=== PATIENT | male | born 1960 | race African-American/Black ===

== ENCOUNTER 2025-06-26 17:17 | Emergency (ER) | payer MEDICAID, SELFPAY ==
--- OUTSIDE RECORDS SUMMARY | 2025-05-21 15:30 | XMS_ITS ---
Author Organization [facility] - Primary Address [address] [place] [id number] Care Team Providers Care Teacher'S Aide Name Role Phone xx, xx Primary Care Provider Unavailabl e Migration, Provider Unavailable Unavailable REASON FOR VISIT Multum To Medispan Conversion Encounter Medications Medication SIG (Take, Route, Frequency, Duration) Notes Start Date End Date Status TYLENOL 325 MG ORAL TABLET *Please review for potential replacement for e-prescription and drug interaction check* Active ADVIL 200 MG ORAL TABLET *Please review for potential replacement for e-prescription and drug interaction check* Active Encounters Encounter Location Date Provider Diagnosis [facility] - Primary [address] [place] [phone] 05/21/2025 Provider Migration Plan Of Treatment No Information Progress Notes * HIRAM SHARMAIZ ADOB:[birth year] (64 yo M)Acc No.[id number]:05/21/2025 Patient: KAREN KAUFFMAN Provider: :1960 A ge:64 Y S ex:Male Date:05/21/2025 Phone: Address:[address], [place] [id number] Pcp:xx xx Structured Data:Preferred me thod of communication : phone Subjective: * Chief Complaints: * M ultum To Medispan Conversion Encounter * Medications: T akingADVIL 200 MG ORAL TABLET , Notes to Pharmacist: *Please review for potential replacement for e-prescription and drug interaction check*TYLENOL 325 MG ORAL TABLET , Notes to Pharmacist: *Please review for potential replacement for e- prescription and drug interaction check*Taking ADVIL 200 MG ORAL TABLET , Notes to Pharmacist: *Please review for potential replacement for e-prescription and drug interaction check*Taking TYLENOL 325 MG ORAL TABLET , Notes to Pharmacist: *Please review for potential replacement for e-prescription and drug interaction check* * Electronic signature of Prov ider Migration on 06/26/2025 at 07:46 PM PULPER Sign off status: Pending * Provider: Date: 07/21/2024 Generated for Yannick rebollar/Tawny/Peg on: 08/27/2024 07:46 PM PULPER
[2025-06-26 17:41] VITALS: BP 211/90; PULSE 65; RESP 18; TEMP 36.3; O2SAT 96; BMI 25.1
--- OUTSIDE RECORDS SUMMARY | 2025-06-26 19:47 | XMS_ITS | Clinical Summary ---
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 Max acetaminophen dose: 4000mg in 24 hrs. Active sildenafil citrate (VIAGRA) 100 mg tabletIndications :ED (erectile dysfunction) of non-organic origin Take 1 Tablet (100 mg) by mouth once daily if needed for Erectile Dysfunction. Take 30 minutes to 4 hours before sexual activity. Max 100mg/24hr. 30 Tablet 11 05/16/20 24 Active tadalafiL (CIALIS;ADCIRCA) 20 mg tablet Take 20 mg by mouth once daily. Take 30 minutes before sexual activity. Active sennosides-docusa te (SENOKOT S) (8.6-50 mg) tabletIndications :Constipation, acute Take 2 Tablets by mouth once daily. 60 Tablet 11 08/24/19 25 Active fluticasone (50 mcg per actuation) nasal solution (FLONASE)Indicati ons:Acute non-recurrent frontal sinusitis Inhale 1 [place] in both nostrils two times daily. 16 g 11 09/21/19 25 Active LORazepam (ATIVAN) 0.5 mg tabIndications:Ot her dysphagia Take 1 Tablet (0.5 mg) by mouth two times daily. 20 Tablet 09/21/19 25 Active meclizine 25 mg tabletIndications :Dizziness Take 1 Tablet (25 mg) by mouth 3 times daily if needed for Vertigo. 20 Tablet 10/16/19 25 Active naproxen (Naprosyn) 500 mg tabletIndications :Bilateral carpal tunnel syndrome Take 1 Tablet (500 mg) by mouth two times daily. 60 Tablet 2 10/20/19 25 Active cetirizine (ZYRTEC) 10 mg tabletIndications :Itching Take 1 Tablet (10 mg) by mouth once daily. 30 Tablet 11 03/01/20 25 Active atorvastatin (LIPITOR) 10 mg tabletIndications :Hyperlipidemia, unspecified hyperlipidemia type Take 1 Tablet (10 mg) by mouth at bedtime. 90 Tablet 1 04/18/20 25 Active losartan (COZAAR) 100 mg tabletIndications :HTN (hypertension) Take 1 Tablet (100 mg) by mouth once daily. 90 Tablet 1 04/18/20 25 Active metoprolol succinate (Toprol XL) 100 mg Sustained-Release tabletIndications :Hypertension, unspecified type Take 1 Tablet (100 mg) by mouth once daily. 90 Tablet 04/18/20 25 Active pantoprazole (PROTONIX) 40 mg delayed-release tabletIndications :Gastritis, presence of bleeding unspecified, unspecified chronicity, unspecified gastritis type Take 1 Tablet (40 mg) by mouth once daily. 90 Tablet 04/18/20 25 Active tamsulosin 0.4 mg capsuleIndication s:Low testosterone in male,Prostate hypertrophy Take 1 Capsule (0.4 mg) by mouth once daily after a meal. 90 Capsule 04/18/20 25 Active solifenacin succinate (VESICARE) 5 mg tabletIndications :Low testosterone in male,Prostate hypertrophy Take 1 Tablet (5 mg) by mouth once daily. 90 Tablet 04/18/20 25 Active traZODone (DESYREL) 50 mg tabletIndications :Insomnia, idiopathic TAKE 1 TO 2 TABLETS(50 TO 100 MG) BY MOUTH AT BEDTIME NEEDED 180 Tablet 1 04/18/20 25 Active artificial tears (peg 400 0.4%-propylene glycol 0.3%) (Systane (propylene glycoL)) ophthalmicIndicat ions:Bilateral dry eyes Place 1-2 Drops into both eyes 4 times daily if needed for Dry Eyes. 10 mL 3 05/02/20 25 Active gabapentin (NEURONTIN) 300 mg capsuleIndication s:Numbness of hand,Pain in both hands,DDD (degenerative disc disease), cervical 1 tablet in the morning and 2 tablet at night. 270 Capsule 3 06/02/20 25 Active oxyCODONE (ROXICODONE) 5 mg immediate release tabletIndications :Headache syndrome,Chronic midline low back pain without sciatica Take 1 Tablet (5 mg) by mouth every 6 hours if needed for Pain. 120 Tablet 06/02/20 25 Active predniSONE (DELTASONE) 20 mg tabletIndications :Costochondritis Take 1 Tablet (20 mg) by mouth two times daily with meals for 5 days. 10 Tablet 06/23/20 25 025 Active cyclobenzaprine (FLEXERIL) 10 mg tabletIndications :Costochondritis Take 1 Tablet (10 mg) by mouth at bedtime. 14 Tablet 06/23/20 25 Active omeprazole (PRILOSEC) 20 mg Delayed-Release capsuleIndication s:Chest pain, unspecified type Take 1 Capsule (20 mg) by mouth once daily before a meal. 15 Capsule 06/26/20 25 Active CaneIndications:C hronic bilateral back pain, unspecified back location Single Point Cane for home use. For lifelong use 1 Each 04/18/20 22 025 Discontin ued(*Med complete/ Regimen complete/ Level of care change) HYDROcodone-aceta minophen (5-325 mg/tablet)Indicat ions:Headache syndrome,Chronic midline low back pain without sciatica Take 1 Tablet by mouth every 6 hours if needed for Pain. Max acetaminophen dose: 4000 mg in 24 hrs. 180 Tablet 04/18/20 25 025 Discontin ued(Reord er (E-cancel not sent)) glyBURIDE (MICRONASE; DIABETA) 2.5 mg tabletIndications :Elevated glucose Take 1 Tablet (2.5 mg) by mouth once daily before a meal. 90 Tablet 1 04/18/20 25 025 Discontin ued(*Med complete/ Regimen complete/ Level of care change) gabapentin (NEURONTIN) 300 mg capsuleIndication s:Numbness of hand,Pain in both hands,DDD (degenerative disc disease), cervical Take 1 tablet 2 times a day for 1 week and then 1 tablet in the morning and 2 tablet at night. 60 Capsule 3 05/02/20 25 025 Discontin ued(Reord er (E-cancel not sent)) oxyCODONE (OXYCONTIN) 15 mg SUSTAINED release tabletIndications :Chronic bilateral back pain, unspecified back location,Fibromya lgia Take 1 Tablet (15 mg) by mouth every 12 hours. 60 Tablet 05/12/20 25 025 Discontin ued(*Med complete/ Regimen complete/ Level of care change) cefdinir 300 mg capsuleIndication s:Headache syndrome Take 1 Capsule (300 mg) by mouth two times daily for 10 days. 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 b. Interarterial course between the aorta and the pulmonary artery. c. Slit-like orifice. d. Possible intramural proximal segment, see discussion. 2. Would consider intravascular ultrasound or functional testing for further assessment of this anomaly. Pain medication agreement 10/13/2011 Overview (04/28/2025): 60 vicodin per month. Updated Controlled Substance agreement signed with Dr. Connors 12/10/2020 Diagnosis Code replaced due to regulatory update Fibromyalgia 10/13/2011 Back pain, chronic 06/07/2011 Serum creatinine raised 04/19/2010 Chest pain, unspecified 04/18/2010 Hypertension 11/04/2009 Overview (11/05/2023): Overview: Hypertension GERD (gastroesophageal reflux disease) Hypertension Encounters Date Type Department Care Team Description 06/26/2025 12:46 AM PERSONNEL COORDINATOR - 06/26/2025 4:28 AM PERSONNEL COORDINATOR Emergency [facility] [address] [place] [address] Lydia Pierce MD Chest pain, unspecified type (Primary Dx) Discharge Disposition: Home Self Care 06/26/2025 Travel 06/23/2025 12:45 PM PERSONNEL COORDINATOR Office Visit [address] [phone] Joy Malone MD Chest Pain; Back Pain 06/23/2025 Travel 06/21/2025 6:09 PM PERSONNEL COORDINATOR - 06/21/2025 9:07 PM [facility] Emergency [facility] [address] [place] [address] Jerman Soares MD Chest pain, unspecified type (Primary Dx); Back pain, unspecified back location, unspecified back pain laterality, unspecified chronicity Discharge Disposition: Home Self Care 06/21/2025 Travel 06/21/[address] [phone] Ronni Connors MD Form 06/16/[address] [phone] Ronni Connors MD Form 06/02/2025 11:30 AM PERSONNEL COORDINATOR Office Visit [address] [phone] Ronni Connors MD Follow Up (pain); Diabetes 06/02/2025 Travel 05/25/[address] [phone] Ronni Connors MD Form (physical therapy plan of care form) 05/10/[address] [phone] Ronni Connors MD Medication Problem 05/02/2025 11:00 AM CDT Office Visit [address] [phone] 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 States his symptoms come and go. Patient states at times it is hard to move his hands and slat pickler objects.); Neck Pain/problem (Patient states he's had neck pain for the past 3-4. Pain is causing stiffness when trying to move his head.) 05/02/2025 Travel 04/19/[address] [phone] Ronni Connors MD Screening ([facility]) 04/18/2025 1:50 PM CDT Office Visit [address] [phone] Ronni Connors MD Pain 04/18/2025 Travel from Last 3 Months Immunizations Immunization Administration Dates Next Due COVID-19 vaccine (Collectric-Bio NTech 30mcg/0.3mL) 12YO+ SHAY-SUCROSE PF, MDV 11/20/2021 COVID-19 vaccine (Pfizer-BioNTech 30mcg/0.3mL) P F, MDV 11/14/2020,10/24/2020 INFLUENZA, IIV3 PF (AGE >= 6 MO) 04/18/2010 Inactivated Polio Vaccine 05/04/2014,04/26/2010 Influenza, IIV3 (Age >=3 years) 05/02/2014,04/18 Influenza, IIV4 05/01/2014 MENINGOCOCCAL VACCINE 2 VIAL 2MO-55YO (MENVEO) 1 MMR 12/19/2006,10/17/2005 Pneumococcal Conj 20-valent (Prevnar 20) 024 Td (Age >=7 Years) 12/19/2006,10/17/2005 Tdap 05/04/2014 Typhoid (injectable) 05/04/2014 Varicella Vaccine 12/19/2006,10/17/2005 Yellow Fever 04/26/2010 Family History Medical History Relation Name Comments No Known Problems Brother No Known Problems Daughter No Known Problems Father No Known Problems Half-Brother No Known Problems Half-Sister No Known Problems Maternal Aunt No Known Problems Maternal Grandfather No Known Problems Maternal Grandmother No Known Problems Maternal Uncle No Known Problems Mother No Known Problems Other No Known Problems Paternal Aunt No Known Problems Paternal Grandfather No Known Problems Paternal Grandmother No Known Problems Paternal Uncle No Known Problems Sister No Known Problems Son Relation Name Status Comments Brother Daughter Father Half-Brother Half-Sister Maternal Aunt Maternal Grandfather Maternal Grandmother Maternal Uncle Mother Other Paternal Aunt Paternal Grandfather Paternal Grandmother Paternal Uncle Sister Son Alive Social History Tobacco Use Types Packs/Day Years Used Date Smoking Tobacco: Former Cigarettes 0 Q uit: 11/15/2007 Passive Smoke Exposure: Never Smokeless Tobacco: Never Tobacco Cessation:Counseling Given: Not Answered Alcohol Use Standard Drinks/Week Comments Not Currently 0 (1 standard drink = 0.6 oz pur e alcohol) PHQ-2 Answer Date Recorded PHQ-2 TOTAL SCORE 0 02/04/2023 Social Connections Answer Date Recorded Do you often feel lonely or isolated from those around you? 0 02/16/2024 Alcohol Use Answer Date Recorded How often do you have a drink containing alcohol ? 0 05/02/2025 Average Number of Drinks Not on file 025 Frequency of Binge Drinking Not on file 04/19 Financial Resource Strain Answer Date R ecorded Difficulty of Paying Living Expenses 3 02/16/2024 Difficulty of Paying Living Expenses Not on file 02/16/2024 Food Insecurity Answer Date Recorded Do you worry your food will run out before you are able to buy more? 1 02/16/2024 Transportation Needs Answer Date Record ed Does lack of transportation keep you from medica l appointments? 1 02/16/2024 Does lack of transportation keep you from work, meetings or getting things that you need? 1 02/16/2024 Housing Stability Answer Date Recorded What is your housing situation today? 1 02/16/2024 Interpersonal Safety Answer Date Record ed Are you being hit, kicked, p ushed or yelled at (see row info)? No 06/26/2025 Interpersonal Safety Abuse 12 - 18 Not on file 06/26/2025 Interpersonal Safety Ambulatory Vulnerability No t on file 06/26/2025 Utilities Answer Date Recorded Do you have trouble paying f or utilities (for example, heat, electricity, water, phone)? 1 02/16/2024 Sex and Gender Information Value Date Recorded Sex Assigned at Not on file Legal Sex Male 7:31 AM PERSONNEL COORDINATOR Gender Identity Not on file Sexual Orientation Not on file Occupation Industry Job Start Date Job End Date Not on file Not on file Not on file Not on file Last Filed Vital Signs Vital Sign Reading Time Taken Comments Blood Pressure 186/86 06/26/2025 4:18 AM PERSONNEL COORDINATOR Pulse 82 06/26/2025 4:01 AM PERSONNEL COORDINATOR Temperature 36.6 C (97.8 F) 06/26/2025 12:50 AM PERSONNEL COORDINATOR Respiratory Rate 18 06/26/2025 12:5 6 AM PERSONNEL COORDINATOR Oxygen Saturation 98% 06/26/2025 4:01 AM PERSONNEL COORDINATOR Inhaled Oxygen Concentration - - Weight 91.5 kg (201 lb 11.5 oz) 025 12:50 AM PERSONNEL COORDINATOR Height 182.9 cm (6') 06/26/2025 12:55 AM PERSONNEL COORDINATOR Body Mass Index 27.36 06/26/2025 12:50 AM PERSONNEL COORDINATOR Plan of Treatment Upcoming Encounters Date Type Department Care Team (Late st Contact Info) Description 07/05/2025 9:00 AM PERSONNEL COORDINATOR Appointment [facility] [address] [place] [address] 08/25/2025 1:30 PM PERSONNEL COORDINATOR Office Visit [facility] [address] [place] [phone] Ronni Connors MD [address] [place] [address] Health Maintenance Due Date Last Done Comments Depression screening for age 12+ 1971 RSV vaccine for adults or (1 - Risk 50-74 years 1-dose series) 2009 Zoster (shingles) series for age 50+ (1 of 2) 2009 Colonoscopy through age 75 08/29/2019 08/29/2009 Tetanus booster 05/04/2024 05/04/2014, 08/2006, 10/17/2005 AAA screening age 65-74 2024 04/16/2022 COVID-19 vaccine series ( season) 2025 05/16/2022, 11/20/2021, 11/14/2020, Additional history exists Influenza Vaccine (#1) 2025 4, 05/01/2014, 04/18/2010, Additional history exists BMI (ht and wt on same day) for age 18+ 06/23/2026 06/23/2025, 06/02/2025, 04/18/2025, Additional history exists Lipids for age 45-75 06/02/2030 06/02/2025, 11/22/2024, 06/29/2023, Additional history exists HIV for age 15-65 Completed 04/24/2011 Hepatitis C screening for age 18-79 Completed 04/24/2011 Pneumococcal series for age 50+ Completed 08/11/2023 Hepatitis B series for 19+ Aged Out N o longer eligible based on patient's age to complete this topic Goals Goal Patient Goal Type Associated Problems Recent Progress Patient-Stated? Author BLOOD PRESSURE-MAINTA INS BP LESS THAN 130/80 Blood Pressure No Patti Johnson RN BLOOD PRESSURE - MAINTAINS BP less than 140/90 Blood Pressure No Ronni Connors MD Procedures Procedure Name Priority Date/Time Associated Diagnosis Comments TROPONIN T (HS) ONE TIME Timed 06/26/2025 3:26 AM PERSONNEL COORDINATOR CTA CHEST STAT 06/26/2025 2:54 AM PERSONNEL COORDINATOR RED CELL MORPHOLOGY STAT 06/26/2025 1 :27 AM PERSONNEL COORDINATOR PLATELET ESTIMATE STAT 06/26/2025 1:2 7 AM PERSONNEL COORDINATOR MANUAL DIFFERENTIAL STAT 06/26/2025 1 :27 AM PERSONNEL COORDINATOR CBC WITH AUTO DIFFERENTIAL STAT 06/26/2025 1:27 AM PERSONNEL COORDINATOR TROPONIN T (HS) ACUTE W/2HR REFLEX STAT 06/26/2025 1:27 AM PERSONNEL COORDINATOR COMP METABOLIC PANEL STAT 06/26/2025 1:27 AM PERSONNEL COORDINATOR CBC WITH AUTO DIFFERENTIAL STAT 06/26/2025 1:27 AM PERSONNEL COORDINATOR EKG 12 LEAD STAT 06/26/2025 12:53 AM PERSONNEL COORDINATOR TROPONIN T (HS) ONE TIME Timed 06/21/2025 8:24 PM PERSONNEL COORDINATOR XR SPINE THORACIC 2 VIEWS STAT 06/21/2025 7:02 PM PERSONNEL COORDINATOR XR SPINE CERVICAL 2 VIEWS STAT 06/21/2025 7:01 PM PERSONNEL COORDINATOR XR CHEST 2 VIEWS PA AND LATERAL STAT 06/21/2025 7:01 PM PERSONNEL COORDINATOR XR SPINE LUMBAR 2 VIEWS STAT 06/21/2025 7:01 PM PERSONNEL COORDINATOR CBC WITH AUTO DIFFERENTIAL STAT 06/21/2025 6:38 PM PERSONNEL COORDINATOR TROPONIN T (HS) ACUTE W/2HR REFLEX STAT 06/21/2025 6:38 PM PERSONNEL COORDINATOR BASIC METABOLIC PANEL STAT 06/21/2025 6:38 PM PERSONNEL COORDINATOR CBC WITH AUTO DIFFERENTIAL STAT 06/21/2025 6:38 PM PERSONNEL COORDINATOR EKG 12 LEAD STAT 06/21/2025 6:19 PM PERSONNEL COORDINATOR BASIC METABOLIC PANEL Routine 06/02/2025 11:41 AM PERSONNEL COORDINATOR Type 2 diabetes mellitus without complication, without long-term current use of insulin (HC) LIPID PANEL W REFLEX MEASURED LDL Routine 06/02/2025 11:41 AM PERSONNEL COORDINATOR Hyperlipidemia, unspecified hyperlipidemia type HEMOGLOBIN A1C MONITORING (POCT) STAT 06/02/2025 11:41 AM PERSONNEL COORDINATOR Type 2 diabetes mellitus without complication, without long-term current use of insulin (HC) CT CHEST ABDOMEN PELVIS W Routine 04/16/2022 10:39 AM CDT Abdominal pain, generalized ANTI HIV 1/2 Routine 04/24/2011 9:15 AM CDT Hx-cont/exps haz bdy fld ANTI HCV Routine 04/24/2011 9:15 AM CDT Hx-cont/exps haz bdy fld from Last 3 Months or Most Recently Relevant to Health Maintenance Results * (ABNORMAL) TROPONIN T (HS) ONE TIME (06/26/2025 3:26 AM PERSONNEL COORDINATOR) Only the most recent of2 resultswithin the time period is included. TROPONIN T HS 26(H) 6-15 ng/L ng/L 06/26/2025 3:47 AM PERSONNEL COORDINATOR [facility] Blood BLOOD SPECIMEN / Unknown Venipuncture / Unknown 06/26/2025 3:26 AM PERSONNEL COORDINATOR 06/26/2025 3:29 AM PERSONNEL COORDINATOR us Lydia Pierce MD CHEMISTRY Final Res ult [facility] [address] [place] [address] * CTA CHEST (06/26/2025 2:54 AM PERSONNEL COORDINATOR) Anatomical Region Laterality Modality CHEST Computed Tomogra phy 06/26/2025 3:05 AM PERSONNEL COORDINATOR Narrative 06/26/2025 3:05 AM PERSONNEL COORDINATOR For Patients: As a result of the Cures Act, medical imaging exams and procedure reports are released immediately into your electronic medical record. You may view this report before your referring provider. If you have questions, please contact your health care provider. Indication: Chest pain radiating to back with high blood pressure Technique: Postcontrast CTA of the chest following 100 mL Omnipaque 350 IV contrast. Axial MIP images obtained. Comparison: CT chest abdomen pelvis performed 04/16/2022 Findings: Arteries: No acute aortic pathology appreciated. No large or central pulmonary embolism is detected. Lungs: No consolidation. No effusion. No pneumothorax. Mediastinum: No acute abnormality appreciated. Calcified coronary arterial and aortic atherosclerosis. Lymph nodes: No gross lymphadenopathy. Prominent right hilar nodes appear minimally changed from prior study. Upper abdomen: No acute abnormality appreciated. Soft tissues: No acute abnormality appreciated. Bones: No acute abnormality appreciated. Degenerative changes of the spine and shoulders. Impression: 1. No acute abnormality appreciated. 2. Calcified coronary arterial and aortic atherosclerosis. Please note that all CT scans at this facility use dose modulation, iterative reconstruction, and/or weight-based dosing when appropriate to reduce radiation dose to as low as reasonably achievable. Dictated by Eugenio Brennan MD @ 06/26/2025 3:05:45 AM (Electronically Signed) Procedure Note Eugenio Brennan MD - 06/26/2025 For Patients: As a result of the Century Cures Act, medical imagingexams and procedure reports are released immediately into your electronicmedical record. You may view this report before your referring provider.If you have questions, please contact your health care provider. Indication: Chest pain radiating to back with high blood pressure Technique: Postcontrast CTA of the chest following 100 mL Omnipaque 350 IV contrast.Axial MIP images obtained. Comparison: CT chest abdomen pelvis performed 04/16/2022 Findings: Arteries: No acute aortic pathology appreciated. No large or centralpulmonary embolism is detected. Lungs: No consolidation. No effusion. No pneumothorax. Mediastinum: No acute abnormality appreciated. Calcified coronary arterialand aortic atherosclerosis. Lymph nodes: No gross lymphadenopathy. Prominent right hilar nodes appearminimally changed from prior study. Upper abdomen: No acute abnormality appreciated. Soft tissues: No acute abnormality appreciated. Bones: No acute abnormality appreciated. Degenerative changes of the spineand shoulders. Impression: 1. No acute abnormality appreciated. 2. Calcified coronary arterial and aortic atherosclerosis. Please note that all CT scans at this facility use dose modulation,iterative reconstruction, and/or weight-based dosing when appropriate toreduce radiation dose to as low as reasonably achievable. Dictated by Eugenio Brennan MD @ 06/26/2025 3:05:45 AM (Electronically Signed) us Lydia Pierce MD CT Final Res ult * (ABNORMAL) TROPONIN T (HS) ACUTE W/2HR REFLEX (06/26/2025 1:27 AM PERSONNEL COORDINATOR) Only the most recent of2 resultswithin the time period is included. TROPONIN T HS 24(H) 6-15 ng/L ng/L 06/26/2025 1:52 AM PERSONNEL COORDINATOR [facility] Blood BLOOD SPECIMEN / Unknown IV Start / Unknown 06/26/2025 1:27 AM PERSONNEL COORDINATOR 06/26/2025 1:30 AM PERSONNEL COORDINATOR [facility] - 06/26/2025 1:52 AM PERSONNEL COORDINATOR hs-cTnT (Elecsys Troponin T Gen 5) concentration (s) above the sex-specific 99th percentile (16 ng/L or greater for males or 11 ng/L or greater for females) are indicative of myocardial injury. If initial hs-cTnT <=100 ng/L at presentation, a 0h/2h ABSOLUTE (ng/L) delta change (rising or falling) of >=10 ng/L suggests a significant change, whereas a 0h/2h delta change <=3 ng/L suggests no significant change. If initial hs-cTnT >100 ng/L at presentation, a 0h/2h/ RELATIVE (percent, %) delta change of 20% is suggested to distinguish patients with acute vs. chronic myocardial injury. There are multiple etiologies that can cause hs-cTnT increases above the 99th percentile (myocardial injury) other than acute myocardial infarction. Clinical context and careful clinical evaluation are critical for diagnosis and risk-stratification. The diagnosis of acute myocardial infarction requires a rising and/or falling pattern in hs-cTnT concentrations with at least one value above the sex-specific 99th percentile PLUS at least one of the following clinical criteria: ischemic symptoms, new or presumed new significant ST-T wave changes or new LBBB, development of pathological Q waves, imaging evidence of new loss of viable myocardium or new regional wall motion abnormality, or identification of intracoronary atherothrombosis or an acute angiographic culprit on coronary angiography. In appropriate low-risk patients with a non-ischemic electrocardiogram without active chest pain with a symptom onset >3-hours without recurrence, a single initial hs-cTnT<6 ng/L identifies patient with a very low risk in emergency department patient population. us Lydia Pierce MD CHEMISTRY Final Res ult [facility] [address] [place] [address] * (ABNORMAL) CBC WITH AUTO DIFFERENTIAL (06/26/2025 1:27 AM [facility]) Only the most recent of2 resultswithin the time period is included. WHITE BLOOD COUNT 12.1(H) 4.5 - 11.0 thou/cu mm 06/26/2025 2:01 AM [facility] RED BLOOD COUNT 4.68 4.30 - 5.90 mil/cu mm 06/26/2025 2:01 AM [facility] HEMOGLOBIN 14.2 13.5 - 17.5 g/dL 06/26/2025 2:01 AM [facility] HEMATOCRIT 39.9 37.0 - 53.0 % 06/26/2025 2:01 AM [facility] MCV 85 80 - 100 fL 06/26/2025 2:01 AM [facility] MCH 30.3 26.0 - 34.0 pg 06/26/2025 2:01 AM [facility] MCHC 35.6 32.0 - 36.0 g/dL 06/26/2025 2:01 AM [facility] RDW 13.2 11.5 - 15.5 % 06/26/2025 2:01 AM [facility] PLATELET COUNT 258 140 - 440 thou/cu mm 06/26/2025 2:01 AM [facility] [facility] MPV 11.0 6.5 - 11.0 fL 06/26/2025 2:01 AM [facility] Blood BLOOD SPECIMEN / Unknown IV Start / Unknown 06/26/2025 1:27 AM PERSONNEL COORDINATOR 06/26/2025 1:30 AM PERSONNEL COORDINATOR Lydia Pierce MD HEMATOLOGY Final Res ult Performing Organization Address [facility] Co de Phone Number [facility] [address] [place] [address] * RED CELL MORPHOLOGY (06/26/2025 1:27 AM PERSONNEL COORDINATOR) Pathologist [facility] RBC COMMENT RBC morphology appears normal RBC morphology appears normal, RBC morphology within normal limits for newborns. 06/26/2025 2:01 AM PERSONNEL COORDINATOR [facility] LARGE PLATELETS Present 06/26/2025 2:01 AM PERSONNEL COORDINATOR [facility] Blood BLOOD SPECIMEN / Unknown IV Start / Unknown 06/26/2025 1:27 AM PERSONNEL COORDINATOR 06/26/2025 1:30 AM PERSONNEL COORDINATOR us Lydia Pierce MD HEMATOLOGY Final Res ult Performing Organization Address [facility]/ZIP Co de Phone Number [facility] [address] [place] [address] * PLATELET ESTIMATE (06/26/2025 1:27 AM PERSONNEL COORDINATOR) [facility] PLATELET ESTIMATE Adequate Adequate, No estimate 06/26/2025 2:01 AM [facility] Blood BLOOD SPECIMEN / Unknown IV Start / Unknown 06/26/2025 1:27 AM PERSONNEL COORDINATOR 06/26/2025 1:30 AM PERSONNEL COORDINATOR us Lydia Pierce MD HEMATOLOGY Final Res ult Performing Organization Address City/[facility]/ZIP Co de Phone Number [facility] [address] [place] [address] * (ABNORMAL) MANUAL DIFFERENTIAL (06/26/2025 1:27 AM PERSONNEL COORDINATOR) [facility] % NEUTROPHILS 91.0 % 06/26/2025 2:01 AM [facility] % LYMPHOCYTES 8.0 % 06/26/2025 2:01 AM [facility] % MONOCYTES 1.0 % 06/26/2025 2:01 AM [facility] % EOSINOPHILS 0.0 % 06/26/2025 2:01 AM [facility] % BASOPHILS 0.0 % 06/26/2025 2:01 AM [facility] NEUTROPHILS ABSOLUTE 11.0(H) 1.7 - 7.0 thou/cu mm 06/26/2025 2:01 AM [facility] LYMPHOCYTES ABSOLUTE 1.0 0.9 - 2.9 thou/cu mm 06/26/2025 2:01 AM [facility] MONOCYTES ABSOLUTE 0.1 <0.9 thou/cu mm 06/26/2025 2:01 AM [facility] EOSINOPHILS ABSOLUTE 0.0 <0.5 thou/cu mm 06/26/2025 2:01 AM [facility] BASOPHILS ABSOLUTE 0.0 <0.3 thou/cu mm 06/26/2025 2:01 AM [facility] Blood BLOOD SPECIMEN / Unknown IV Start / Unknown 06/26/2025 1:27 AM PERSONNEL COORDINATOR 06/26/2025 1:30 AM [facility] us Lydia Pierce MD HEMATOLOGY Final Res ult [facility] [address] [place] [address] * (ABNORMAL) COMP METABOLIC PANEL (06/26/2025 1:27 AM PERSONNEL COORDINATOR) SODIUM 136 136 - 145 mmol/L 06/26/2025 1:52 AM [facility] POTASSIUM 4.3 3.5 - 5.1 mmol/L 06/26/2025 1:52 AM [facility] CHLORIDE 101 98 - 107 mmol/L 06/26/2025 1:52 AM [facility] CO2,TOTAL 24 22 - 29 mmol/L 06/26/2025 1:52 AM [facility] ANION GAP 11 5 - 18 06/26/2025 1:52 AM [facility] GLUCOSE 224(H) 70 - 99 mg/dL 06/26/2025 1:52 AM [facility] CALCIUM 10.1 8.8 - 10.4 mg/dL 06/26/2025 1:52 AM [facility] Comment: Reference ranges for this test were updated on 05/24/2024 to reflect our healthy population more accurately. Reference range changes are not retroactively applied to results, but previous results using the same methodology can be interpreted in the context of the new reference range. BUN 22 8 - 23 mg/dL 06/26/2025 1:52 AM [facility] CREATININE 1.31(H) 0.70 - 1.20 mg/dL 06/26/2025 1:52 AM [facility] BUN/CREAT RATIO 17 10 - 20 1:52 AM [facility] eGFR 60(L) >90 mL/min/1. 73m2 06/26/2025 1:52 AM [facility] Comment:As of 2021, eG FR is calculated by the CKD-EPI creatinine equation without race adjustment. eGFR can be influenced by muscle mass, exercise, and diet. The reported eGFR is an estimation only and is only applicable if the renal function is stable. ALBUMIN 4.1 4.0 - 4.9 g/dL 06/26/2025 1:52 AM [facility] PROTEIN,TOTAL 7.4 6.0 - 8.0 g/dL 06/26/2025 1:52 AM [facility] BILIRUBIN,TOTAL 0.4 0.0 - 1.2 mg/dL 06/26/2025 1:52 AM [facility] ALK PHOSPHATASE 91 40 - 129 IU/L 06/26/2025 1:52 AM [facility] ALT (SGPT) 17 10 - 50 IU/L 06/26/2025 1:52 AM [facility] AST (SGOT) 28 10 - 50 IU/L 06/26/2025 1:52 AM [facility] Blood BLOOD SPECIMEN / Unknown IV Start / Unknown 06/26/2025 1:27 AM PERSONNEL COORDINATOR 06/26/2025 1:30 AM PERSONNEL COORDINATOR us Lydia Pierce MD CHEMISTRY Final Res ult Performing Organization Address [facility] de Phone Number [facility] [address] [place] [address] * EKG 12 LEAD (06/26/2025 12:53 AM PERSONNEL COORDINATOR) Only the most recent of2 resultswithin the time period is included. Interpretation Sinus tachycardia Nonspecific ST abnormality Abnormal ECG When compared with ECG of 21-Jun-2025 18:19, T wave inversion no longer evident in Anterior leads [facility] Ventricular Rate 101 BPM [facility] Atrial Rate 101 BPM [facility] P-R Interval 186 ms [facility] QRS Duration 104 ms [facility] QT 368 ms [facility] QTc 477 ms [facility] NOW P [place] 57 degrees [facility] NOW R [place] 79 degrees [facility] NOW T [place] 41 degrees [facility] NOW 06/26/2025 12:5 3 AM PERSONNEL COORDINATOR 06/26/2025 7:51 AM PERSONNEL COORDINATOR us Lydia Pierce MD EKG ORD Final Res ult Performing Organization Address [facility] de Phone Number [place] [place], [place] * XR SPINE THORACIC 2 VIEWS (06/21/2025 7:02 PM PERSONNEL COORDINATOR) Anatomical Region Laterality Modality Spine, THORACIC SPINE Digital Ra diography 06/21/2025 7:28 PM PERSONNEL COORDINATOR Narrative 06/21/2025 7:28 PM PERSONNEL COORDINATOR For Patients: As a result of the Century Cures Act, medical imaging exams and procedure reports are released immediately into your electronic medical record. You may view this report before your referring provider. If you have questions, please contact your health care provider. Indication: Pain. Technique: Thoracic spine 2 views. Comparison: Chest radiographs 06/21/2025. Findings: Bones: There are 12 rib-bearing thoracic type vertebrae. No compression deformity other fracture. No worrisome osseous lesion. Joint spaces: Mild multilevel disc space narrowing. Soft tissue/thorax: Unremarkable. Impression: No thoracic spine fracture. Mild multilevel disc space narrowing. Dictated by Wilson Gamboa MD @ 06/21/2025 7:28:47 PM (Electronically Signed) Procedure Note Wilson Gamboa MD - 06/21/2025 For Patients: As a result of the Cures Act, medical imagingexams and procedure reports are released immediately into your electronicmedical record. You may view this report before your referring provider.If you have questions, please contact your health care provider. Indication: Pain. Technique: Thoracic spine 2 views. Comparison: Chest radiographs 06/21/2025. Findings: Bones: There are 12 rib-bearing thoracic type vertebrae. No compressiondeformity other fracture. No worrisome osseous lesion. Joint spaces: Mild multilevel disc space narrowing. Soft tissue/thorax: Unremarkable. Impression: No thoracic spine fracture. Mild multilevel disc space narrowing. Dictated by Wilson Gamboa MD @ 06/21/2025 7:28:47 PM (Electronically Signed) Jerman Soares MD GENERAL IMAGING Final Result * XR SPINE CERVICAL 2 VIEWS (06/21/2025 7:01 PM PERSONNEL COORDINATOR) Anatomical Region Laterality Modality CERVICAL SPINE Digital Radiogra phy 06/21/2025 7:26 PM PERSONNEL COORDINATOR Impressions 06/21/2025 7:26 PM PERSONNEL COORDINATOR 1. No fracture or traumatic malalignment. 2. Moderate multilevel disc space narrowing increased since 01/25/2016. Dictated by Wilson Gamboa MD @ 06/21/2025 7:26:49 PM (Electronically Signed) Narrative 06/21/2025 7:26 PM PERSONNEL COORDINATOR For Patients: As a result of the Cures Act, medical imaging exams and procedure reports are released immediately into your electronic medical record. You may view this report before your referring provider. If you have questions, please contact your health care provider. INDICATION: Pain. TECHNIQUE: Cervical spine 2 views. COMPARISON: Cervical spine radiographs 01/25/2016. FINDINGS: Bones: Straightening the cervical lordosis. No fractures or significant bone lesions.Normal alignment of C1-C2 on the open mouth odontoid view. Disc spaces: Moderate multilevel disc space narrowing increased since the prior exam. Facets/uncovertebral joints: Mild multilevel bilateral facet and uncovertebral arthropathy similar to the prior exam. Soft tissues/lung apices: Left carotid atherosclerosis. Otherwise unremarkable. Unremarkable. Procedure Note Wilson Gamboa MD - 06/21/2025 For Patients: As a result of the Cures Act, medical imagingexams and procedure reports are released immediately into your electronicmedical record. You may view this report before your referring provider.If you have questions, please contact your health care provider. INDICATION: Pain. TECHNIQUE: Cervical spine 2 views. COMPARISON: Cervical spine radiographs 01/25/2016. FINDINGS: Bones: Straightening the cervical lordosis. No fractures or significantbone lesions.Normal alignment of C1-C2 on the open mouth odontoid view. Disc spaces: Moderate multilevel disc space narrowing increased since theprior exam. Facets/uncovertebral joints: Mild multilevel bilateral facet anduncovertebral arthropathy similar to the prior exam. Soft tissues/lung apices: Left carotid atherosclerosis. Otherwiseunremarkable. Unremarkable. IMPRESSION: 1. No fracture or traumatic malalignment. 2. Moderate multilevel disc space narrowing increased since 01/25/2016. Dictated by Wilson Gamboa MD @ 06/21/2025 7:26:49 PM (Electronically Signed) Jerman Soares MD GENERAL IMAGING Final Result * XR CHEST 2 VIEWS PA AND LATERAL (06/21/2025 7:01 PM PERSONNEL COORDINATOR) Anatomical Region Laterality Modality CHEST, THORAX, Lung, HEART Digit al Radiography 06/21/2025 7:21 PM PERSONNEL COORDINATOR Impressions 06/21/2025 7:21 PM PERSONNEL COORDINATOR No acute cardiopulmonary abnormality. Dictated by Wilson Gamboa MD @ 06/21/2025 7:21:57 PM (Electronically Signed) Narrative 06/21/2025 7:21 PM PERSONNEL COORDINATOR For Patients: As a result of the Cures Act, medical imaging exams and procedure reports are released immediately into your electronic medical record. You may view this report before your referring provider. If you have questions, please contact your health care provider. INDICATION: Chest pain. TECHNIQUE: Chest 2 views. COMPARISON: Chest radiographs 11/04/2023, thoracic spine radiographs 06/21/2020. FINDINGS: Lines and Tubes: None. Lungs: No opacity or focal consolidation. Pleural Space: No pleural effusion or pneumothorax. Heart and mediastinum: Normal cardiomediastinal silhouette. Bones and soft tissues: No significant findings. Upper Abdomen: Normal. Procedure Note Wilson Gamboa MD - 06/21/2025 For Patients: As a result of the Cures Act, medical imagingexams and procedure reports are released immediately into your electronicmedical record. You may view this report before your referring provider.If you have questions, please contact your health care provider. INDICATION: Chest pain. TECHNIQUE: Chest 2 views. COMPARISON: Chest radiographs 11/04/2023, thoracic spine radiographs 06/21/2020. FINDINGS: Lines and Tubes: None. Lungs: No opacity or focal consolidation. Pleural Space: No pleural effusion or pneumothorax. Heart and mediastinum: Normal cardiomediastinal silhouette. Bones and soft tissues: No significant findings. Upper Abdomen: Normal. IMPRESSION: No acute cardiopulmonary abnormality. Dictated by Wilson Gamboa MD @ 06/21/2025 7:21:57 PM (Electronically Signed) Jerman Soares MD GENERAL IMAGING Final Result * XR SPINE LUMBAR 2 VIEWS (06/21/2025 7:01 PM PERSONNEL COORDINATOR) Anatomical Region Laterality Modality LUMBAR SPINE Digital Radiogra phy 06/21/2025 7:25 PM PERSONNEL COORDINATOR Impressions 06/21/2025 7:25 PM PERSONNEL COORDINATOR 1. No fractures. 2. Lumbosacral transitional anatomy. Dictated by Wilson Gamboa MD @ 06/21/2025 7:25:12 PM (Electronically Signed) Narrative 06/21/2025 7:25 PM PERSONNEL COORDINATOR For Patients: As a result of the Cures Act, medical imaging exams and procedure reports are released immediately into your electronic medical record. You may view this report before your referring provider. If you have questions, please contact your health care provider. INDICATION: Trauma. TECHNIQUE: Lumbar spine 3 views. COMPARISON: Thoracic spine radiographs 06/21/2025. FINDINGS: Vertebrae: There are 5 non-rib bearing lumbar type vertebrae and lumbosacral transitional anatomy with lumbarized S1. Vertebral body heights are maintained, no compression deformity. Alignment: Normal lordosis.No listhesis. Disc Spaces: Mild multilevel disc space narrowing. Facets: Moderate multilevel facet arthropathy of the mid to lower lumbar spine. Soft tissues/Abdominopelvic structures: No significant findings. Procedure Note Wilson Gamboa MD - 06/21/2025 For Patients: As a result of the Cures Act, medical imagingexams and procedure reports are released immediately into your electronicmedical record. You may view this report before your referring provider.If you have questions, please contact your health care provider. INDICATION: Trauma. TECHNIQUE: Lumbar spine 3 views. COMPARISON: Thoracic spine radiographs 06/21/2025. FINDINGS: Vertebrae: There are 5 non-rib bearing lumbar type vertebrae andlumbosacral transitional anatomy with lumbarized S1. Vertebral bodyheights are maintained, no compression deformity. Alignment: Normal lordosis.No listhesis. Disc Spaces: Mild multilevel disc space narrowing. Facets: Moderate multilevel facet arthropathy of the mid to lower lumbarspine. Soft tissues/Abdominopelvic structures: No significant findings. IMPRESSION: 1. No fractures. 2. Lumbosacral transitional anatomy. Dictated by Wilson Gamboa MD @ 06/21/2025 7:25:12 PM (Electronically Signed) Jerman Soares MD GENERAL IMAGING Final Result * (ABNORMAL) BASIC METABOLIC PANEL (06/21/2025 6:38 PM PERSONNEL COORDINATOR) Only the most recent of2 resultswithin the time period is included. SODIUM 139 136 - 145 mmol/L 06/21/2025 7:02 PM [facility] POTASSIUM 4.0 3.5 - 5.1 mmol/L 06/21/2025 7:02 PM [facility] CHLORIDE 103 98 - 107 mmol/L 06/21/2025 7:02 PM [facility] CO2,TOTAL 26 22 - 29 mmol/L 06/21/2025 7:02 PM [facility] ANION GAP 10 5 - 18 06/21/2025 7:02 PM [facility] GLUCOSE 124(H) 70 - 99 mg/dL 06/21/2025 7:02 PM [facility] CALCIUM 9.4 8.8 - 10.4 mg/dL 06/21/2025 7:02 PM [facility] Comment: Reference ranges for this test were updated on 05/24/2024 to reflect our healthy population more accurately. Reference range changes are not retroactively applied to results, but previous results using the same methodology can be interpreted in the context of the new reference range. BUN 27(H) 8 - 23 mg/dL 06/21/2025 7:02 PM [facility] CREATININE 1.25(H) 0.70 - 1.20 mg/dL 06/21/2025 7:02 PM [facility] BUN/CREAT RATIO 22(H) 10 - 20 7:02 PM [facility] eGFR 64(L) >90 mL/min/1. 73m2 06/21/2025 7:02 PM [facility] Comment:As of 2021, eG FR is calculated by the CKD-EPI creatinine equation without race adjustment. eGFR can be influenced by muscle mass, exercise, and diet. The reported eGFR is an estimation only and is only applicable if the renal function is stable. Blood BLOOD SPECIMEN / Unknown Venipuncture / Unknown 06/21/2025 6:38 PM PERSONNEL COORDINATOR 06/21/2025 6:41 PM PERSONNEL COORDINATOR Jerman Soares MD CHEMISTRY Final Result [facility] [address] [place] [address] * (ABNORMAL) LIPID PANEL W REFLEX MEASURED LDL (06/02/2025 11:41 AM PERSONNEL COORDINATOR) CHOLESTEROL, TOTAL 198 <200 mg/dL 06/03/2025 4:10 AM PERSONNEL COORDINATOR [facility] TRIGLYCERIDES 374(H) <150 mg/dL 06/03/2025 4:10 AM PERSONNEL COORDINATOR [facility] Comment: If a non-fasting specimen was collected, consider repeat triglyceride testing on a fasting specimen if clinically indicated. Christopher et al. J. of Clin. Lipidol. 2015;9:129-169. HDL CHOLESTEROL 43 > OR = 40 mg/dL 06/03/2025 4:10 AM PERSONNEL COORDINATOR [facility] NON HDL CHOLESTEROL 155(H) <130 mg/dL (calc) 06/03/2025 4:10 AM PERSONNEL COORDINATOR [facility] Comment: For patients with diabetes plus 1 major ASCVD risk factor, treating to a non-HDL-C goal of <100 mg/dL (LDL-C of <70 mg/dL) is considered a therapeutic option. CHOL/HDLC RATIO 4.6 <5.0 (calc) 06/03/2025 4:10 AM PERSONNEL COORDINATOR [facility] LDL-CHOLESTEROL 105(H) mg/dL (calc) 06/03/2025 4:10 AM PERSONNEL COORDINATOR [facility] Comment: Reference range: <100 Desirable range <100 mg/dL for primary prevention; <70 mg/dL for patients with CHD or diabetic patients with > or = 2 CHD risk factors. LDL-C is now calculated using the Lilliana calculation, which is a validated novel method providing better accuracy than the Friedewald equation in the estimation of LDL-C. Johnie SS et al. LUIS. 2013;310(19): 8162-9002 (http://education.[employer].Tilt/faq/QZV937) Blood BLOOD SPECIMEN / Unknown [facility] / Unknown 06/02/2025 11:41 AM PERSONNEL COORDINATOR 06/02/2025 11:42 AM PERSONNEL COORDINATOR Ronni Connors MD CHEMISTRY Final Resul t [facility] [address] [place] [address], * STAT Hemoglobin A1C (06/02/2025 11:41 AM PERSONNEL COORDINATOR) [facility] HEMOGLOBIN A1C MONITORING (POCT) 5.5 <=6.4 % 06/02/2025 11:52 AM PERSONNEL COORDINATOR [facility] Blood BLOOD SPECIMEN / Unknown [facility] / Unknown 06/02/2025 11:41 AM PERSONNEL COORDINATOR 06/02/2025 11:42 AM PERSONNEL COORDINATOR Narrative [facility] - 06/02/2025 11:52 AM PERSONNEL COORDINATOR (<=6.9%) Indicates good control (7.0% to 7.9%) Indicates fair control (>=8.0%) Indicates poor control NOTE: These thresholds are guidelines and individual targets may vary. Falsely low levels may be seen with: Recent Transfusion, Recent Significant Blood Loss, Hemolytic Diseases, or Falsely elevated levels may be seen with: Untreated Anemias, Splenectomy us Ronni Connors MD CHEMISTRY Final Resul t [facility] [address] [place] [address] * CT CHEST ABDOMEN PELVIS W (04/16/2022 10:39 AM CDT) Anatomical Region Laterality Modality Abdomen, Pelvis, AORTA, LIVER, SPLEEN, CHEST Computed Tomography 04/16/2022 12:4 2 PM CDT Impressions 04/16/2022 12:42 PM CDT 1. No acute abnormality or other finding to account for generalized abdominal in the chest, abdomen, or pelvis. 2. Mild colonic and bladder wall thickening both likely due to lack of distention. 3. Indeterminate 2 cm exophytic left renal lesion likely slightly hyperdense cyst. Recommend renal ultrasound for further evaluation. 4. Coronary and aortic atherosclerotic calcification. 5. Nonobstructing 1 mm stone in the inferior pole of the right kidney. Please note that all CT scans at this facility use dose modulation, iterative reconstruction, and/or weight-based dosing when appropriate to reduce radiation dose to as low as reasonably achievable. Dictated by Akira Perez MD @ Sep 2021 12:42PM (Electronically Signed) Narrative 04/16/2022 12:42 PM CDT For Patients: As a result of the 21st Century Cures Act, medical imaging exams and procedure reports are released immediately into your electronic medical record. You may view this report before your referring provider. If you have questions, please contact your health care provider. INDICATION: Generalized abdominal pain. TECHNIQUE: CT chest, abdomen and pelvis acquired following the intravenous administration of 100 Omnipaque 350 contrast. COMPARISON: None available. Unable to retrieve exam on PACs from 2010. FINDINGS: CHEST: Cardiovascular structures: Heart size is normal. Thoracic aorta and main pulmonary artery are normal in caliber. Coronary artery calcification. Mild calcification in the aortic arch. Mediastinum and imtiaz: No mass or adenopathy. Calcified mediastinal lymph nodes. Lungs and pleura: Lungs and pleural spaces are clear. No suspicious nodules, infiltrates, or effusions. Thyroid: 4 mm hypodense left thyroid nodule. Chest wall and axilla: Gynecomastia. No lymphadenopathy or mass. Bones: No suspicious bone lesions. Unremarkable for age. ABDOMEN AND PELVIS: Liver: Unremarkable. Gallbladder and bile ducts: Unremarkable. Pancreas: Unremarkable. Spleen: Unremarkable. Adrenal glands: Unremarkable. Kidneys: 1 mm nonobstructing stone inferior pole of the right kidney. No hydronephrosis. 2.0 cm exophytic left mid renal lesion with Hounsfield units of 20. Mild bladder wall thickening likely due to lack of distension. GI tract: Mild colonic wall thickening likely due to lack of distention. No pericolonic inflammation. Appendix is normal. No small bowel dilation. No free fluid or free air. No lymphadenopathy. Vascular structures: Aortoiliac atherosclerosis. No aneurysm. Lymph nodes: Unremarkable. Miscellaneous: Small fat containing umbilical hernia. No free air or significant free fluid. Pelvic Organs: Small bilateral fat containing inguinal hernias. Mild enlargement of the prostate. Bones: No suspicious bone lesions. Bilateral hip osteoarthritis. Mild degenerative disc and facet disease in the lower lumbar spine. Procedure Note Akira Perez MD - 04/16/2022 For Patients: As a result of the 21st Century Cures Act, medical imagingexams and procedure reports are released immediately into your electronicmedical record. You may view this report before your referring provider.If you have questions, please contact your health care provider. INDICATION: Generalized abdominal pain. TECHNIQUE: CT chest, abdomen and pelvis acquired following the intravenousadministration of 100 Omnipaque 350 contrast. COMPARISON: None available. Unable to retrieve exam on PACs from 2010. FINDINGS: CHEST: Cardiovascular structures: Heart size is normal. Thoracic aorta and mainpulmonary artery are normal in caliber. Coronary artery calcification.Mild calcification in the aortic arch. Mediastinum and imtiaz: No mass or adenopathy. Calcified mediastinal lymphnodes. Lungs and pleura: Lungs and pleural spaces are clear. No suspiciousnodules, infiltrates, or effusions. Thyroid: 4 mm hypodense left thyroid nodule. Chest wall and axilla: Gynecomastia. No lymphadenopathy or mass. Bones: No suspicious bone lesions. Unremarkable for age. ABDOMEN AND PELVIS: Liver: Unremarkable. Gallbladder and bile ducts: Unremarkable. Pancreas: Unremarkable. Spleen: Unremarkable. Adrenal glands: Unremarkable. Kidneys: 1 mm nonobstructing stone inferior pole of the right kidney. Nohydronephrosis. 2.0 cm exophytic left mid renal lesion with Hounsfieldunits of 20. Mild bladder wall thickening likely due to lack ofdistension. GI tract: Mild colonic wall thickening likely due to lack of distention.No pericolonic inflammation. Appendix is normal. No small bowel dilation.No free fluid or free air. No lymphadenopathy. Vascular structures: Aortoiliac atherosclerosis. No aneurysm. Lymph nodes: Unremarkable. Miscellaneous: Small fat containing umbilical hernia. No free air orsignificant free fluid. Pelvic Organs: Small bilateral fat containing inguinal hernias. Mildenlargement of the prostate. Bones: No suspicious bone lesions. Bilateral hip osteoarthritis. Milddegenerative disc and facet disease in the lower lumbar spine. IMPRESSION: 1. No acute abnormality or other finding to account for generalizedabdominal in the chest, abdomen, or pelvis. 2. Mild colonic and bladder wall thickening both likely due to lack ofdistention. 3. Indeterminate 2 cm exophytic left renal lesion likely slightlyhyperdense cyst. Recommend renal ultrasound for further evaluation. 4. Coronary and aortic atherosclerotic calcification. 5. Nonobstructing 1 mm stone in the inferior pole of the right kidney. Please note that all CT scans at this facility use dose modulation,iterative reconstruction, and/or weight-based dosing when appropriate toreduce radiation dose to as low as reasonably achievable. Dictated by Akira Perez MD @ Apr 16 2022 12:42PM (Electronically Signed) us Ronni Connors MD CT Final Resul t * ANTI HCV (04/24/2011 9:15 AM CDT) ANTI HCV Non-reacti ve [facility] Blood specimen (specimen) BLOOD SPECIMEN / Unknown 04/24/2011 9:15 AM CDT 04/24/2011 9:01 AM CDT Ronni Connors MD SEND OUTS Final Resul t [facility] INTERNAL ZIP [phone] [address] * ANTI HIV 1/2 (04/24/2011 9:15 AM CDT) ANTI HIV 1/2 Non-reacti ve [facility] Blood specimen (specimen) BLOOD SPECIMEN / Unknown 04/24/2011 9:15 AM CDT 04/24/2011 9:01 AM CDT Ronni Connors MD SEND OUTS Final Resul t [facility] INTERNAL ZIP [phone] [address] from Last 3 Months or Most Recently Relevant to Health Maintenance Insurance [facility] Advance Directives * Full Code (Latest Code Status on File) Date Activated Date Inactivated Comments 11/05/2023 9:09 PM 11/06/2023 7:01 PM Question Answer Comments Code Status Discussion: Reviewed Preferences * Full Code Date Activated Date Inactivated Comments 04/18/2010 1:08 AM 04/19/2010 5:36 PM Care Teams Shuttlecock Assembler Relationship Specialty Start Date End Date Ronni Connors MD PCP - General 12/05/09 Carla Muhammad DO [address] [phone] Endocrinology 03/22/24 Meseret Gallardo, RN [id number] [facility] [address] [place] [address] Junior Analyst - [facility] [place] Registered Nurse 07/20/24
== END 2025-06-26 19:43 | disposition left against medical advice (07) ==
LOC: ED 19:44
PROVIDERS: Emergency Provider Family Medicine; PCP Family Medicine
DX: Z53.21 Procedure and treatment not carried out due to patient leaving prior to being seen by health care provider (principal)